=== PATIENT | female | born 1990 | race Caucasian/White ===

== ENCOUNTER 2021-02-01 13:43 | Emergency (ER) | payer OTHER ==
[~2021-02-01] VITALS: Ht 165.1 cm; Wt 82.5 kg
== END 2021-02-01 16:22 | disposition home or self-care (01) ==
LOC: ER 13:43
DX: O99.891 Other specified diseases and conditions complicating pregnancy (principal); R10.9 Unspecified abdominal pain; O9A.212 Injury, poisoning and certain other consequences of external causes complicating pregnancy, second trimester; Z3A.18 18 weeks gestation of pregnancy; W19.XXXA Unspecified fall, initial encounter
CPT/HCPCS: 76815; 99284-25